=== PATIENT | male | born 1970 | race Caucasian/White ===

== ENCOUNTER 2020-04-17 15:10 | Emergency (ER) | payer MEDICAID ==
[~2020-04-17] VITALS: Ht 172.7 cm; Wt 111.1 kg
[2020-04-17 15:10] VITALS: BP 0/0
--- NOTE | 2020-04-17 15:10 | NUR ---
PT TAKEN TO BED 3, COVID PRECAUTIONS IN PLACE.
--- NOTE | 2020-04-17 15:11 | NUR ---
49/M BIB DAUGHTERS, PT FOUND OUTSIDE IN PARKING LOT, SEATED IN PASSENGER SEAT OF VEHICLE. MYSELF AND DR. BROWN WENT OUT WITH A W/C. UPON CONTACT WITH FAMILY DAUGHTERS STATED THAT PATIENT HAD SEIZURE LIKE ACTIVITY. PT WAS FOUND UNRESPONSIVE, PULSELESS, CYANOTIC, NO SIGNS OF SEIZURE ACTIVITY. PT WAS CARRIED OUT FROM THE CAR, PLACED ONTO A GURNEY, CPR INITIATED IMMEDIATELY. SEE CODE SHEET. DAUGHTERS REPORT THAT PATIENT HAD BEEN SICK WITH COLD SYMPTOMS X1 WEEK AGO. A FAMILY THEY WERE TESTED FOR COVID 04/08/2020. TESTS RESULTS CAME BACK INDETERMINATE. DAUGHTER STATES THAT LAST 2 DAYS PATIENT HAD AN INCREASE OF SOB BUT HAD REFUSED TO GO TO HOSPITAL. PT AGREED TO COME TODAY SINCE FEELING WORSE. NKECHI REPORT PT HAVING A HX OF HTN, DM AND NOT SURE IF PT WAS COMPLIANT WITH MEDICATION.
[2020-04-17] MEDS ORDERED: EPINEPHrine PFS 0.1 MG/ML SYR IVP ONE (15:41)
[2020-04-17] MEDS ORDERED: SODIUM BICARBONATE 8.4% PFS 50 MEQ/50 ML SYR IVP ONE (15:41)
[2020-04-17] MEDS ORDERED: CALCIUM GLUCONATE 10% 1000 MG/10 ML VIAL ONE (15:41)
--- NOTE | 2020-04-17 15:50 | NUR ---
LAUNDRY CLERK CALLED AND PAGED. WAITING FOR CALL BACK.
--- NOTE | 2020-04-17 15:54 | NUR ---
SPOKE WITH [facility]. PT WAS RELEASED. CASE # [id number]
[2020-04-17 17:27] VITALS: BP 0/0
--- NOTE | 2020-04-17 17:27 | NUR ---
[facility] TRANSPORT TAKING PATIENT TO [facility] OFFICE. FAMILY WAS ALLOWED AT BEDSIDE, AUTHORIZED BY [employer]. FAMILY AT BEDSIDE. PROVIDED WITH LIST OF MORTUARIES. PT RELEASED TO [facility].
== END 2020-04-17 15:41 | disposition expired ==
LOC: MED 15:10
DX: I46.9 Cardiac arrest, cause unspecified (principal); E11.9 Type 2 diabetes mellitus without complications; I10 Essential (primary) hypertension; Z20.828 Contact with and (suspected) exposure to other viral communicable diseases
CPT/HCPCS: 31500; 36680; 92950; 99291; J0171; J0610